=== PATIENT | female | born 1970 | race Caucasian/White ===

== ENCOUNTER 2024-12-14 10:48 | Day surgery (SDC) | payer OTHER, SELFPAY ==
[2024-12-14] VITALS (10 sets, daily range): BP systolic 106–127; BP diastolic 61–95; PULSE 57–68; RESP 16–18; TEMP 36.1–36.3; O2SAT 96–100
--- NOTE | 2024-12-14 11:42 | W.PM.OPSUD ---
Surgery/Procedure H&P Update DATE OF PROCEDURE: December 14, 2024 DATE H&P PERFORMED: 12/13/24 H&P UPDATE INFORMATION: I have reviewed H&P completed within last 30 days, I have examined patient prior to procedure and No changes to prior documentation PREOP DIAGNOSIS: Right shoulder internal derangement, torn rotator cuff torn labrum PLANNED PROCEDURE: Operation Date: 12/14/24 16:45 Proposed Procedures p Subacromial Decompression(Right) - Feliciano Monterroso MD s Possible Rotator Cuff Repair - Open(Right) - Feliciano Monterroso MD
--- NOTE | 2024-12-14 12:28 | ANES.PREANE2 ---
Pre-Anesthetic Assessment Height/Weight: Height 5 ft 6 in Weight 215 lb Temp Pulse Resp BP Pulse Ox O2 Del Method 97 F L 66 18 127/72 98 Room Air 12/14/24 12:12 12/14/24 12:12 12/14/24 12:12 12/14/24 12:12 12/14/24 12:12 12/14/24 12:12 Preop Diagnosis: Right shoulder internal derangement, torn rotator cuff torn labrum Operation Date: 12/14/24 16:45 Proposed Procedures p Subacromial Decompression(Right) - Feliciano Monterroso MD s Possible Rotator Cuff Repair - Open(Right) - Feliciano Monterroso MD Was Beta Ketty taken within 24 hours: N/A Was Clonidine taken within 24 hours: N/A Last intake: Intake Last Liquid Date 12/13/24 Last Liquid Time 21:00 Last Solid Date 12/13/24 Last Solid Time 19:30 Social No alcohol and No tobacco Exam alert, oriented x 3, clear to auscultation bilaterally and regular rate & rhythm Airway Submandibular: within normal limits Cervical ROM: within normal limits Mallampati: Class II Dentition: full Anesthetic Plan ASA status: 2 Anesthesia: General and Regional (specify below) Other: No prior issues with anesthesia NPO since yesterday evening Denies any cardiac or pulmonary issues Medications for anxiety METs greater than 4 Plan for general anesthesia with preoperative block Medications/Allergies Home Medications ?Medication ?Instructions ?Recorded ?Confirmed ?Last Taken ?Type buspirone 5 mg tablet 5 mg PO TID 12/01/24 12/14/24 12/14/24 History topiramate 100 mg tablet 100 mg PO BID 12/01/24 12/14/24 12/14/24 History venlafaxine 150 mg 150 mg PO DAILY 12/01/24 12/14/24 12/14/24 History capsule,extended release 24 hr Allergies Allergy/AdvReac Type Severity Reaction Status Date / Time No Known Allergies Allergy Unverified 12/01/24 09:55 [facility], [facility] Anesthesia Social History (Updated 12/01/24 @ 10:24 by Radha Gaston MA) Smoking and tobacco/nicotine status: never used tobacco/nicotine Quit status (tobacco/nicotine): has quit using Second hand smoke exposure: No Alcohol intake: current Alcohol intake frequency: holidays/special occasions only Alcohol type: wine Substance/Drug Use: never Lives independently: Yes Household members: none Housing: House Marital status: Single
--- NOTE | 2024-12-14 12:29 | ANES.PROC ---
Anesthesia Procedures Procedure/Date: 12/14/24 Nerve Block ^: Nerve Block 1: Main Anesthesia: other (100 mcg fentanyl and 2 mg Versed) Time Out Performed: Yes Consent: requested by attending/covering physician and from patient Nerve block location: interscalene Anesthesia monitors applied: pulse oximetry, EKG, BP cuff and oxygen Nerve block position: supine Amount of anesthesia used (mL): 30 Ultrasound used to: recognize landmarks Nerve Stimulator Used?: Yes Interscalene/Femoral BLK: other needle (pjunk 4inch) Injection: neg aspiration of heme Patient Tolerated Procedure: well Complications: none Additional Comments: decadron 4mg added to block
[2024-12-14] MEDS: ceFAZolin 2,000 mg SDV 2000 MG IVP (12:31)
--- NOTE | 2024-12-14 13:52 | PM.OP ---
Operative Report Date of procedure: December 14, 2024 Surgeon: Feliciano Monterroso MD Procedure: Preop diagnosis: Internal derangement of the right shoulder Postoperative diagnosis: Torn anterior labrum, degenerative tearing superior and anterior labrum, torn rotator cuff, acromial impingement, adhesions of the shoulder, hypertrophic bursa Procedure: Diagnostic right shoulder arthroscopy with labral debridement and labral repair. Mini open rotator cuff repair, acromioplasty, bursectomy, manipulation of the shoulder to break up adhesions. Surgeon: Feliciano Monterroso MD Shoe Coverer: RAFAEL Walters's assistance was necessary for patient positioning, assistance during the procedure, wound closure and transfer the patient to the PACU Anesthesia: General With preoperative scalene block EBL: 10 cc Indications: Dianne is a 54-year-old female who Presented to the orthopedic offices with an MRI in hand from her primary care demonstrating torn anterior labrum, torn supraspinatus tendon with extension into the infraspinatus. Acromial impingement. After failing all conservative measures patient was offered a diagnostic shoulder arthroscopy with all indicated procedures. All risk benefits treatment alternatives were discussed with her including acromioplasty as well as rotator cuff repair. At this point patient was agreeable to proceed with surgical intervention. Procedure: After obtaining consent preoperative scalene block was administered in preop holding area. Patient was then taken to the operating room and placed on the operative table supine position general anesthetic administered. Once good anesthesia achieved patient placed over the beachchair position was secured to the bed with appropriate padding. Right shoulder and arm were prepped and draped usual fashion. After surgical timeout standard posterior portal was made #11 blade camera cannulas placed within the glenohumeral joint from posteriorly. Anterior working portal was made just inferior to the clavicle at the level of the glenohumeral joint line. Initially probing with a small nerve hook fraying and tearing of the anterior labrum was identified as well as the tear away from the glenoid just inferior to the biceps tendon insertion. There is fraying and tearing the superior labrum also. Mechanical shaver was then used to debride both the superior and anterior labrum. This was done down to stable cartilaginous space. Subsequently a single juggernaut anchor was placed at the level glenoid and labrum tear away and labrum was sutured back down to the glenoid after was prepared with mechanical shaver. Also identified was rotator cuff tear in the supraspinatus region this too was debrided mechanical shaver arthroscopically. At this point arthroscopy was abandoned and a mini open procedure was proceeded with. Small incision made over the anterior and and anterior lateral aspect of the acromion but sharp dissection taken down to subcutaneous tissues electrocautery used for hemostasis. Electrocautery was then used to dissect down through the deltoid musculature to the anterior edge of the acromion and to remove the deltoid from there both anterior and posterior. Using a microsagittal saw acromioplasty was done with a angle cut posteriorly and inferiorly off the anterior acromion to help decompress the area. Once below this is found that the bursa was hypertrophic and very thickened much of this was subsequently debrided with pickups and cautery. Also noted by digital palpation has numerous adhesions. Rotator cuff tear was identified and freshened with a #15 blade. A single 2.9 juggernaut anchor was placed at the level of insertion of the rotator cuff. And horizontal mattress sutures were used from this anchor to repair the rotator cuff. At this point the shoulder was manipulated and adhesions were broken up secondary to early frozen shoulder that she was developing. Further digital palpation also broke up further adhesions at this time. Wound was then washed with copious amounts of sterile irrigation. Deltoid reapproximated back to the anterior acromion with #1-0 Vicryl [id number] sutures. Subcutaneous tissue reapproximated Vicryl interrupted sutures. Skin was closed with skin luis. Wounds are cleaned and dried dressed Xeroform gauze sterile gauze dressing ABDs and adhesive tape. Patient was then placed in abduction pillow and sling awakened and transferred to cover room stable condition
== END 2024-12-14 15:45 | disposition home or self-care (01) ==
PROVIDERS: PCP Family Medicine; Visit Provider Orthopaedic Surgery
PROC: (CPT 29826; principal; 2024-12-14 12:45)
PROC: (CPT 23420; 2024-12-14 12:45)
PROC: (CPT 29805; 2024-12-14 12:45)
DX: M24.9 Joint derangement, unspecified (principal); S43.401A Unspecified sprain of right shoulder joint, initial encounter; X58.XXXA Exposure to other specified factors, initial encounter; M75.101 Unspecified rotator cuff tear or rupture of right shoulder, not specified as traumatic; M75.41 Impingement syndrome of right shoulder; M75.01 Adhesive capsulitis of right shoulder; M75.51 Bursitis of right shoulder; F41.9 Anxiety disorder, unspecified
CPT/HCPCS: 23420; 29822; C1713; J0690; J1100; J2405; J2704; J3010; J3490; J7030; J9999